=== PATIENT | female | born 1945 | race Caucasian/White ===

== ENCOUNTER 2016-08-06 06:12 | Day surgery (SDC) | payer MEDICARE, OTHER ==
--- NOTE | ~2016-08-06 | EGD ---
EGD REPORT [facility] [address] [id number] NAME: LORRIE MEYERS : [birth year] STATUS : REG [facility]#: [id number] AGE: 70 ADM/REG DATE : 08/06/16 MR#: [id number] REPORT SERV DATE: 08/06/16 DICTATED BY: DAMIAN WATT DATE: 08/06/16 REPORT STATUS : Draft TRANSCRIBED BY: [employer] [employer] DATE: 08/06/16 Endoscopy Center Patient Name: Lorrie Meyers Date of : 1945 Attending MD: OPAL WATT MD Procedure Date No Time: 08/06/2016 Procedure: Upper GI endoscopy Indications: Epigastric abdominal pain, Dyspepsia Referring MD: Pilar Ortega Medicines: See the Anesthesia note for documentation of the administered medications Complications: No immediate complications. Estimated blood loss: None. Procedure: Pre-Anesthesia Assessment: - ASA Grade Assessment: III - A patient with severe systemic disease. - Prior to the procedure, a History and Physical was performed, and patient medications and allergies were reviewed. The patient's tolerance of previous anesthesia was also reviewed. The risks and benefits of the procedure and the sedation options and risks were discussed with the patient. All questions were answered, and informed consent was obtained. Prior Anticoagulants: The patient has taken aspirin, last dose was 1 day prior to procedure. After reviewing the risks and benefits, the patient was deemed in satisfactory condition to undergo the procedure. After obtaining informed consent, the endoscope was passed under direct vision. Throughout the procedure, the patient's blood pressure, pulse, and oxygen saturations were monitored continuously. The GIF H190 [id number] was introduced through the mouth, and advanced to the second part of duodenum. The upper GI endoscopy was accomplished without difficulty. The patient tolerated the procedure well. Findings: The examined duodenum was normal. The entire examined stomach was normal. Biopsies were taken with a cold forceps for histology. The cardia and gastric fundus were normal on retroflexion. Diffuse mild erythema was found at the gastroesophageal junction. Biopsies were taken with a cold forceps for histology. No other significant abnormalities were identified in a careful examination of the esophagus. EGD REPORT [address] [address] NAME: LORRIE MEYERS : [birth year] [place] [facility] [place] [id number] AGE: 70 ADM/REG DATE : 08/06/16 MR#: [id number] REPORT SERV DATE: 08/06/16 DICTATED BY: DAMIAN WATT DATE: 08/06/16 REPORT STATUS : Draft TRANSCRIBED BY: [employer] DATE: 08/06/16 Impression: - Normal examined duodenum. - Normal stomach. Biopsied. - Erythema at the gastroesophageal junction. Biopsied. Recommendation: - Patient has a contact number available for emergencies. The signs and symptoms of potential delayed complications were discussed with the patient. Return to normal activities tomorrow. Written discharge instructions were provided to the patient. - Regular diet. - Discharge patient to home. - Continue present medications. - Await pathology results. - If you have ant chest pain, abdominal pain, bleeding or fever or chills please call offive at [phone] or after hours call my answering service at [phone]. If you cannot get hold of us please proceed to the [facility] emergency room Procedure Code(s): --- Professional --- 22807, Esophagogastroduodenoscopy, flexible, transoral; with biopsy, single or multiple Diagnosis Code(s): --- Professional --- K22.9, Disease of esophagus, unspecified R10.13, Epigastric pain K30, Functional dyspepsia CPT copyright 2013 [employer]. All rights reserved. The codes documented in this report are preliminary and upon system designer review may be revised to meet current compliance requirements. OPAL WATT MD 08/06/2016 8:01 AM This report has been signed electronically. Number of Addenda: 0 Note Initiated On: 08/06/2016 7:46 AM Scope Withdrawal Time 0 hours 0 minutes 0 seconds [id number] [id number]
--- NOTE | ~2016-08-06 | EGD ---
EGD REPORT [facility] [address] [address] NAME: LORRIE MEYERS : [birth year] [place] [facility] [place] [id number] AGE: 70 ADM/REG DATE : 08/06/16 MR#: [id number] REPORT SERV DATE: 08/06/16 DICTATED BY: DAMIAN WATT DATE: 08/06/16 REPORT STATUS : Draft [facility]ANSCRIBED BY: [facility] DATE: 08/06/16 Endoscopy Center Patient Name: Lorrie Meyers Date of : 1945 Attending MD: OPAL WATT MD Procedure Date No Time: 08/06/2016 Procedure: Colonoscopy Indications: Screening for colorectal malignant neoplasm, This is the patient's first colonoscopy Referring MD: Pilar Ortega Medicines: See the Anesthesia note for documentation of the administered medications Complications: No immediate complications. Estimated blood loss: None. Procedure: Pre-Anesthesia Assessment: - ASA Grade Assessment: III - A patient with severe systemic disease. - Prior to the procedure, a History and Physical was performed, and patient medications and allergies were reviewed. The patient's tolerance of previous anesthesia was also reviewed. The risks and benefits of the procedure and the sedation options and risks were discussed with the patient. All questions were answered, and informed consent was obtained. Prior Anticoagulants: The patient has taken aspirin, last dose was 1 day prior to procedure. After reviewing the risks and benefits, the patient was deemed in satisfactory condition to undergo the procedure. After I obtained informed consent, the scope was passed under direct vision. Throughout the procedure, the patient's blood pressure, pulse, and oxygen saturations were monitored continuously. The PCF [id number] was introduced through the anus and advanced to the cecum, identified by appendiceal orifice and ileocecal valve. The ileocecal valve, appendiceal orifice, terminal ileum and rectum were photographed. The retroflexed view of ascending colon and hepatic flexure were photographed. The entire colon was examined. The entire colon was examined. The patient tolerated the procedure well. The quality of the bowel preparation was adequate. Findings: The perianal and digital rectal examinations were normal. The terminal ileum appeared normal. A sessile polyp was found in the cecum. The polyp was 4 mm in size. The polyp was removed with a cold snare. Resection and retrieval were EGD REPORT [address] [address] NAME: LORRIE MEYERS : [birth year] STATUS : REG [facility]#: [id number] AGE: 70 ADM/REG DATE : 08/06/16 MR#: [id number] REPORT SERV DATE: 08/06/16 DICTATED BY: DAMIAN WATT DATE: 08/06/16 REPORT STATUS : Draft TRANSCRIBED BY: [employer] DATE: 08/06/16 complete. A sessile polyp was found in the cecum. The polyp was 10 mm in size. The polyp was removed with a hot snare. Resection and retrieval were complete. A sessile polyp was found in the transverse colon. The polyp was 10 mm in size. The polyp was removed with a cold snare. Resection and retrieval were complete. Non-bleeding internal hemorrhoids were found during retroflexion and were Grade I (internal hemorrhoids that do not prolapse). No other significant abnormalities were identified in a careful examination of the remainder of the colon. The entire right colon from caecum to the hepatic flexure was examined twice with torquing of the scope Normal caecum and retroflexed views of ascending colon and hepatic flexure. Thorough exam on slow withdrawal was done of the colon mucosa with rotation of the scope tip. Impression: - The examined portion of the ileum was normal. - One 4 mm polyp in the cecum. Resected and retrieved. - One 10 mm polyp in the cecum. Resected and retrieved. - One 10 mm polyp in the transverse colon. Resected and retrieved. - Non-bleeding internal hemorrhoids. - The entire right colon from caecum to the hepatic flexure was examined twice with torquing of the scope - Normal caecum and retroflexed views of ascending colon and hepatic flexure. - Thorough exam on slow withdrawal was done of the colon mucosa with rotation of the scope tip. Recommendation: - Patient has a contact number available for emergencies. The signs and symptoms of potential delayed complications were discussed with the patient. Return to normal activities tomorrow. Written discharge instructions were provided to the patient. - Regular diet. - Discharge patient to home. - Continue present medications. - Await pathology results. - Repeat colonoscopy in 3 years for surveillance. - If you have ant chest pain, abdominal pain, bleeding or fever or chills please call offive at [phone] or after hours call my answering service at [phone]. If you cannot get hold of us please proceed to the [facility] emergency room EGD REPORT [place] [id number] [facility] [place]. [address] NAME: LORRIE MEYERS : [birth year] STATUS : REG [facility]#: [id number] AGE: 70 ADM/REG DATE : 08/06/16 MR#: [id number] REPORT SERV DATE: 08/06/16 DICTATED BY: DAMIAN WATT DATE: 08/06/16 REPORT STATUS : Draft TRANSCRIBED BY: [employer] DATE: 08/06/16 Procedure Code(s): --- Professional --- 01373, Colonoscopy, flexible, proximal to splenic flexure; with removal of tumor(s), polyp(s), or other lesion(s) by snare technique Diagnosis Code(s): --- Professional --- K64.0, First degree hemorrhoids D12.3, Benign neoplasm of transverse colon D12.0, Benign neoplasm of cecum Z12.11, Encounter for screening for malignant neoplasm of colon CPT copyright 2013 [employer]. All rights reserved. The codes documented in this report are preliminary and upon medical biller coder review may be revised to meet current compliance requirements. OPAL WATT MD 08/06/2016 8:29 AM This report has been signed electronically. Number of Addenda: 0 Note Initiated On: 08/06/2016 7:42 AM Scope Withdrawal Time 0 hours 16 minutes 18 seconds [address] [address]
[~2016-08-06 06:12] MED LIST: ASAB PO; DITRO5 PO; ELOCON CREAM 0.15 GM TOP; GLUCOPHAGE1000 MG PO; MAGOX4 PO; MEVACOR PO; NEUR400 PO; VICTOZA18 MG/3 ML SC; ZESTORETIC1 TAB PO
== END 2016-08-06 23:59 | disposition home health service (06) ==
LOC: DMU 06:12
PROVIDERS: Internal Medicine Gastroenterology
PROC: 0DBH8ZZ Excision of Cecum, Via Natural or Artificial Opening Endoscopic (ICD-10-PCS; 2016-08-06)
PROC: 0DBL8ZZ Excision of Transverse Colon, Via Natural or Artificial Opening Endoscopic (ICD-10-PCS; 2016-08-06)
PROC: 0DB68ZX Excision of Stomach, Via Natural or Artificial Opening Endoscopic, Diagnostic (ICD-10-PCS; principal; 2016-08-06 08:00)
PROC: 0DB48ZX Excision of Esophagogastric Junction, Via Natural or Artificial Opening Endoscopic, Diagnostic (ICD-10-PCS; 2016-08-06 08:00)
DX: Z12.11 Encounter for screening for malignant neoplasm of colon (principal); D12.0 Benign neoplasm of cecum; D12.3 Benign neoplasm of transverse colon; K64.0 First degree hemorrhoids; K29.50 Unspecified chronic gastritis without bleeding; E66.9 Obesity, unspecified; I10 Essential (primary) hypertension; E11.9 Type 2 diabetes mellitus without complications; E66.01 Morbid (severe) obesity due to excess calories; J45.909 Unspecified asthma, uncomplicated; M19.90 Unspecified osteoarthritis, unspecified site; Z90.49 Acquired absence of other specified parts of digestive tract; Z90.710 Acquired absence of both cervix and uterus
CPT/HCPCS: 82962; 88305; 88342